=== PATIENT | male | born 1955 | race Caucasian/White ===

== ENCOUNTER 2018-11-14 01:36 | Emergency (ER) | payer BC ==
[~2018-11-14] VITALS: Ht 180.3 cm; Wt 68.0 kg
[2018-11-14 01:40] VITALS: Ht 180.3 cm; Wt 68.0 kg
[2018-11-14 02:56] LABS: CALCIUM 8.8 mg/dL (8.5-10.1); CARBON DIOXIDE 27.3 mmol/L (21-32); CHLORIDE SERUM 103 mmol/L (98-107); CREATININE SERUM 0.9 mg/dL (0.7-1.3); GFR1 > 60 mL/min; GLUCOSE SERUM 94 mg/dL (74-106); POTASSIUM SERUM 4.3 mmol/L (3.5-5.1); SODIUM SERUM 138 mmol/L (136-145)
[2018-11-14 02:59] LABS: ALBUMIN 3.7 g/dL (3.4-5.0); ALKALINE PHOSPHATASE 81 U/L (46-116); ALT/SGPT 42 U/L (16-63); AST/SGOT 25 U/L (15-37); BILIRUBIN TOTAL 0.4 mg/dL (0.20-1.00); TOTAL PROTEIN, SERUM 7.2 g/dL (6.4-8.2)
[2018-11-14 03:01] LABS: BASOPHIL % 1.2 % (0-2); RED CELL DISTRIBUTION WIDTH 13.8 % (11.5-14.5)
[2018-11-14 03:02] LABS: PLATELET COUNT 203 x10^3mcL (130-400)
[2018-11-14 03:58] VITALS: BP 121/68
== END 2018-11-14 03:58 | disposition home or self-care (01) ==
LOC: ED 01:36
PROVIDERS: Emergency Medicine
DX: R04.0 Epistaxis (principal); I50.9 Heart failure, unspecified; E78.00 Pure hypercholesterolemia, unspecified; Z95.818 Presence of other cardiac implants and grafts
CPT/HCPCS: 36415

== ENCOUNTER 2018-11-15 06:18 | Emergency (ER) | payer BC ==
[~2018-11-15] VITALS: Ht 180.3 cm; Wt 69.4 kg
[2018-11-15 06:21] VITALS: BP 117/64; Ht 180.3 cm; Wt 69.4 kg
== END 2018-11-15 07:14 | disposition home or self-care (01) ==
LOC: ED 06:18
DX: R04.0 Epistaxis (principal)

== ENCOUNTER 2018-11-16 12:14 | Emergency (ER) | payer BC ==
[~2018-11-16] VITALS: Ht 180.3 cm; Wt 70.3 kg
[2018-11-16 12:19] VITALS: Ht 180.3 cm; Wt 70.3 kg
[2018-11-16 13:25] VITALS: BP 126/72
== END 2018-11-16 13:25 | disposition home or self-care (01) ==
LOC: ED 12:14
DX: R04.0 Epistaxis (principal)